=== PATIENT | male | born 1955 | race Caucasian/White ===

== ENCOUNTER 2019-05-11 09:00 | Outpatient (RCR) | payer OTHER | END 2019-05-17 | LOC: PT 09:00 | PROVIDERS: ATTEND Orthopaedic Surgery | DX: M47.812 Spondylosis without myelopathy or radiculopathy, cervical region (principal) ==

== ENCOUNTER 2019-05-19 16:46 | Outpatient (RCR) | payer OTHER | END 2019-06-17 | LOC: PT 16:46 | PROVIDERS: ATTEND Orthopaedic Surgery | DX: M47.812 Spondylosis without myelopathy or radiculopathy, cervical region (principal); M54.2 Cervicalgia; M62.81 Muscle weakness (generalized); M53.82 Other specified dorsopathies, cervical region | CPT/HCPCS: 97139 ==

== ENCOUNTER 2022-06-14 11:46 | Outpatient (RCR) | payer OTHER | END 2022-06-17 | LOC: PT 11:46 | PROVIDERS: ATTEND Orthopaedic Surgery | DX: M75.101 Unspecified rotator cuff tear or rupture of right shoulder, not specified as traumatic (principal) ==

== ENCOUNTER 2022-07-16 08:59 | Outpatient (RCR) | payer MEDICARE, OTHER | END 2022-07-18 | LOC: PT 08:59 | PROVIDERS: ATTEND Orthopaedic Surgery | DX: M75.101 Unspecified rotator cuff tear or rupture of right shoulder, not specified as traumatic (principal) ==

== ENCOUNTER → 2022-08-17 | Outpatient (RCR) | payer OTHER | LOC: PT 07-24 10:58 | PROVIDERS: ATTEND Orthopaedic Surgery | DX: M75.101 Unspecified rotator cuff tear or rupture of right shoulder, not specified as traumatic (principal) ==

== ENCOUNTER 2022-09-10 09:00 | Outpatient (RCR) | payer OTHER | END 2022-09-17 | LOC: PT 09:00 | PROVIDERS: ATTEND Orthopaedic Surgery | DX: M75.101 Unspecified rotator cuff tear or rupture of right shoulder, not specified as traumatic (principal) ==

== ENCOUNTER 2022-09-21 06:53 | Outpatient (RCR) | payer OTHER | END 2022-10-17 | LOC: PT 06:53 | PROVIDERS: ATTEND Orthopaedic Surgery | DX: M75.121 Complete rotator cuff tear or rupture of right shoulder, not specified as traumatic (principal); M62.81 Muscle weakness (generalized); M25.511 Pain in right shoulder; M25.611 Stiffness of right shoulder, not elsewhere classified ==